=== PATIENT | female | born 1970 | race Caucasian/White ===

== ENCOUNTER 2016-10-06 09:30 | Day surgery (SDC) | payer OTHER ==
[~2016-10-06] VITALS: Ht 165.1 cm; Wt 52.2 kg
[~2016-10-06 09:30] MED LIST: FISH1000 PO; LODI400T PO; MULT1TAB18 PO; NEUR100C PO; VITA500C24 PO
[2016-10-06] MEDS ORDERED: PROPOFOL 200 MG/20 ML VIAL As Ordered ONE (09:46)
[2016-10-06] MEDS ORDERED: dexameTHASONE 4 MG/ML 1ML VIAL (J1100) As Ordered ONE (09:46)
[2016-10-06] MEDS ORDERED: ONDANSETRON 4MG/2ML VIAL (J2405) As Ordered ONE (09:46)
[2016-10-06] MEDS ORDERED: LIDOCAINE 2% INJ 100 MG/5 ML SDV (FOR ANES.) As Ordered ONE (09:46)
[2016-10-06] MEDS ORDERED: KETOROLAC 60 MG/2 ML VIAL (J1885) As Ordered ONE (09:46)
[2016-10-06] MEDS ORDERED: fentaNYL 100 MCG/2 ML INJECTION (J3010) As Ordered ONE (09:46)
[2016-10-06] MEDS ORDERED: MIDAZOLAM INJ 2 MG/2 ML VIAL (J2250) As Ordered ONE (09:47)
[2016-10-06 10:00] LABS: MEAN CORPUSCULAR HEMOGLOBIN 33.1 pg (27.0-33.0); MEAN CORPUSCULAR HGB CONC 34.3 g/dl (32.0-36.5); MEAN CORPUSCULAR VOLUME 96.4 fl (80.0-96.0); WHITE BLOOD COUNT 3.7 K/mm3 (4.0-10.0)
[2016-10-06] MEDS ORDERED: LR 1,000 ML IV ONE (10:00)
[2016-10-06 10:13] LABS: CONTROL LINE HCG INT CTR LINE PRESENT
[2016-10-06] MEDS ORDERED: ePHEDrine SULFATE 25 MG/5 ML(5MG/ML) SYRINGE As Ordered ONE (13:57)
[2016-10-06] MEDS ORDERED: PERCOCET 5MG/325MG TAB As Ordered ONE (14:43)
[2016-10-06] MEDS ORDERED: PERCOCET 5MG/325MG TAB PO PRN (14:45)
[2016-10-06] MEDS ORDERED: ONDANSETRON 4MG/2ML VIAL (J2405) IV PRN ×2 (14:45→15:00)
[2016-10-06] MEDS ORDERED: HYDROmorphone HCL 1 MG/ML SYRINGE (J1170) IV PRN (14:45)
[2016-10-06] MEDS ORDERED: LR 1,000 ML IV SCH (14:45)
[2016-10-06] MEDS ORDERED: fentaNYL 100 MCG/2 ML INJECTION (J3010) IV PRN (14:45)
[2016-10-06] MEDS ORDERED: PROMETHAZINE INJ 25 MG/ML VIAL (J2550) IV PRN (15:00)
[2016-10-06] MEDS ORDERED: MORPHINE 2 MG/ML 1ML SYRINGE IV PRN (15:00)
[2016-10-06 16:16] VITALS: BP 119/67
--- NOTE | 2016-10-07 18:28 | RO ---
DATE OF PROCEDURE: 10/06/2016 PREPROCEDURE DIAGNOSIS: 1) Abnormal Uterine Bleeding 2) Failed endometrial biopsy in clinic POSTPROCEDURE DIAGNOSIS: 1) Abnormal uterine bleeding 2) Failed endometrial biopsy in clinic PROCEDURE: Operative hysteroscopy and dilation and curettage SURGEON: Dr. Checo Hinds GANG HEMSTITCHING MACHINE OPERATOR: None ANESTHESIA: General, Dr. Ruiz The patient is a 46-year-old with known abnormal uterine bleeding and was unable to dilate the cervix to perform dilation and curettage in clinic and endometrial biopsy. A decision was made to take the patient to the operating room (OR) for operative hysteroscopy and dilation and curettage. The risks, benefits, indications and alternatives to the procedure were reviewed with the patient and informed consent was obtained. DESCRIPTION OF PROCEDURE: She was taken to the operating room where general anesthesia, per patient request, was obtained without difficulty. She was then placed in the High lithotomy position using Abdelrahman stirrups and exam under anesthesia performed, significant for a midline mobile 8-week and severely anteverted uterus. No adnexal masses or fullness. She was then prepped and draped in the normal sterile fashion without complication. After a time-out was performed, a sterile speculum was placed in the patient's vagina. The cervix was visualized. A single-tooth tenaculum was used to grasp the anterior lip of the cervix. Uterine sound was gently placed in the uterus which sounded to 8 cm. Cervix was gently serially dilated to 16 Hanks dilator. Hysteroscope was then primed and prepped in a routine fashion and advanced through the endocervical canal under direct visualization and advanced to the fundus. After evaluation and distention of the uterus with warm saline, the normal appearing cavity with no abnormal fibroids or polyps were appreciated. Tubal ostia were visualized but appeared to be closed. Hysteroscopic fluid deficit was 190 mL. At this point, hysteroscopy device was removed and a gentle sharp curettage performed until a gritty texture uterine cry was noted. This was placed on a Telfa pad, posterior vaginal floor, which was then removed, and sent down to pathological evaluation. Single-tooth tenaculum was removed. No bleeding noted. Hemostasis was assured. No bleeding noted again from the single-tooth tenaculum site or the cervical os. All instruments were removed. Hysteroscopic fluid deficit was as above. Tolerated the procedure well. Sponge, lap and needle counts were correct times. The patient to the post-anesthesia care unit (PACU) in stable condition. Dali Hinds OB-HAND [employer]ATE ST[employer]ER SHIVA
== END 2016-10-06 16:20 | disposition home or self-care (01) ==
LOC: M SDC 09:30
PROVIDERS: ATTEND Student in an Organized Health Care Education/Training Program
DX: N93.9 Abnormal uterine and vaginal bleeding, unspecified (principal); N85.4 Malposition of uterus; M51.9 Unspecified thoracic, thoracolumbar and lumbosacral intervertebral disc disorder; Z98.51 Tubal ligation status; Z79.899 Other long term (current) drug therapy
CPT/HCPCS: 36415; 58558; 84703; 85027; 86850; 86900; 86901; 88305; J1100; J1885; J2250; J2405; J3010

== ENCOUNTER → 2017-04-16 | Outpatient (REF) | payer OTHER ==
[2017-04-16 22:07] LABS: APPEARANCE, URINE HAZY (CLEAR); BACTERIA, URINE AUTO 1+ (NEGATIVE); BILIRUBIN, URINE AUTO NEGATIVE (NEGATIVE); BLOOD, URINE BLOOD 1+ (NEGATIVE); COLOR, URINE STRAW (YELLOW); GLUCOSE, URINE (UA) AUTO NEGATIVE (NEGATIVE); KETONE, URINE AUTO NEGATIVE (NEGATIVE); LEUKOCYTE ESTERASE, URINE AUTO 2+ (NEGATIVE); NITRITE, URINE AUTO NEGATIVE (NEGATIVE); PROTEIN, URINE AUTO NEGATIVE (NEGATIVE); RBC, URINE AUTO 2 /HPF (0-3); SPECIFIC GRAVITY URINE AUTO 1.006 (1.002-1.035); SQUAMOUS EPITHELIAL CELL UR AU 8 /HPF (0-6); UROBILINOGEN, URINE AUTO 0.2 mg/dL (0.0-2.0); WBC, URINE AUTO 64 /HPF (0-3)
== END ==
LOC: M LAB REF 09:20
DX: N39.0 Urinary tract infection, site not specified (principal)
CPT/HCPCS: 81001

== ENCOUNTER → 2017-04-25 | Outpatient (REF) | payer OTHER ==
[2017-04-25 22:34] LABS: APPEARANCE, URINE CLEAR (CLEAR); BACTERIA, URINE AUTO NEGATIVE (NEGATIVE); BILIRUBIN, URINE AUTO NEGATIVE (NEGATIVE); BLOOD, URINE BLOOD NEGATIVE (NEGATIVE); COLOR, URINE YELLOW (YELLOW); GLUCOSE, URINE (UA) AUTO NEGATIVE (NEGATIVE); KETONE, URINE AUTO NEGATIVE (NEGATIVE); LEUKOCYTE ESTERASE, URINE AUTO NEGATIVE (NEGATIVE); NITRITE, URINE AUTO NEGATIVE (NEGATIVE); PROTEIN, URINE AUTO NEGATIVE (NEGATIVE); RBC, URINE AUTO 0 /HPF (0-3); SPECIFIC GRAVITY URINE AUTO 1.003 (1.002-1.035); SQUAMOUS EPITHELIAL CELL UR AU 2 /HPF (0-6); UROBILINOGEN, URINE AUTO 0.2 mg/dL (0.0-2.0); WBC, URINE AUTO 0 /HPF (0-3)
== END ==
LOC: M LAB REF 09:31
DX: N39.0 Urinary tract infection, site not specified (principal)